=== PATIENT | female | born 1955 | race Caucasian/White ===

== ENCOUNTER → 2023-03-09 | Emergency (ER) | payer OTHER, MEDICARE ==
[2023-03-09 13:10] LABS: Absolute Lymphocytes (CBC) 1.5 K/uL (0.7-4.9); Lymphocytes % 26.4 % (15.3-44.8); MCV 94.2 fL (80-100); MPV 7.5 fL (7.6-11.3); Platelets 241 thou/uL (152-406); RBC Red Blood Cell Count 4.35 M/uL (3.86-4.86)
[2023-03-09 13:21] LABS: Albumin 3.9 g/dL (3.4-5.0); Bilirubin Total 0.9 mg/dL (0.2-1.0); Potassium 4.6 mEq/L (3.5-5.1); Protein, Total 7.5 g/dL (6.4-8.2)
--- NOTE | 2023-03-09 13:58 | RAD REPORT ---
EXAM DESCRIPTION: CT - Abdomen Pelvis W Contrast - 03/09/2023 1:11 pm CLINICAL HISTORY: ABD PAIN COMPARISON: No comparisons TECHNIQUE: Thin cut axial CT imaging of the abdomen and pelvis was performed following intravenous a dministration of 100 mL Isovue 300. Multiplanar reformats were generated and reviewed. All CT scans are performed using dose optimization technique as appropriate and may include automated exposure control or mA/KV adjustment according to patient size. FINDINGS: No suspicious findings in the lung bases. The liver, spleen, adrenal glands, and pancreas show no suspicious findings. Gallbladder and biliary tree are also without suspicious finding. Symmetric renal function is seen with no hydronephrosis or suspicious renal mass. No dilated bowel loops or bowel wall thickening. Appendix is unremarkable. No free air, free fluid or inflammatory stranding. No hernia, mass or bulky lymphadenopathy. The urinary bladder is without sig nificant finding. No suspicious bony findings. IMPRESSION: No acute intra-abdominal process.
--- NOTE | 2023-03-09 14:19 | ER ---
Nurse's Notes [facility] Name: Olamide Kurtz Age: 67 yrs Sex: Female : 1955 Arrival Date: 03/09/2023 Time: : Bed 11 Private MD: Jeffrey Davila V Diagnosis: Abdominal pain, unspecified Presentation: 03/09 11:49 Chief complaint: Patient states: Sent by Dr. Davila for abdominal pain, possible bowel ld1 blockage. Abdominal pain X 2-3 weeks. Coronavirus screen: At this time, the client does not indicate any symptoms associated with coronavirus-19. Ebola Screen: No symptoms or risks identified at this time. Initial Sepsis Screen: Does the patient meet any 2 criteria? No. Patient's initial sepsis screen is negative. Does the patient have a suspected source of infection? No. Patient's initial sepsis screen is negative. Risk Assessment: Do you want to hurt yourself or someone else? Patient reports no desire to harm self or others. Onset of symptoms was March 09, 2023. 11:49 Method Of Arrival: Ambulatory ld1 11:49 Acuity: JOHANNE 3 ld1 Triage Assessment: 11:50 General: Appears in no apparent distress. uncomfortable, Behavior is calm, cooperative, ld1 appropriate for age. Pain: Complains of pain in abdomen Pain does not radiate. Pain currently is 8 out of 10 on a pain scale. Quality of pain is described as throbbing, Pain began 3 weeks Is continuous. EENT: No signs and/or symptoms were reported regarding the EENT system. Neuro: Level of Consciousness is awake, alert, obeys commands, Oriented to person, place, time, situation. Cardiovascular: Capillary refill < 3 seconds Patient's skin is warm and dry. Respiratory: Airway is patent Respiratory effort is even, unlabored. GI: Abdomen is flat, non-distended, Reports lower abdominal pain, upper abdominal pain, diarrhea, nausea. : No signs and/or symptoms were reported regarding the genitourinary system. Derm: No signs and/or symptoms reported regarding the dermatologic system. Musculoskeletal: No signs and/or symptoms reported regarding the musculoskeletal system. Historical: - Allergies: 11:51 Codeine; ld1 - Home Meds: 11:51 None [Active]; ld1 - PMHx: 11:51 None; ld1 - PSHx: 11:51 Total abdominal hysterectomy; ld1 - Immunization history:: Adult Immunizations up to date. - Social history:: Smoking status: Patient denies any tobacco usage or history of. Patient/guardian denies using alcohol. - Family history:: not pertinent. Screenin:08 [facility] ED Fall Risk Assessment (Adult) History of falling in the last 3 months, kc6 including since admission No falls in past 3 months (0 pts) Confusion or Disorientation No (0 pts) Intoxicated or Sedated No (0 pts) Impaired Gait No (0 pts) Mobility Assist Device Used No (0 pt) Altered Elimination No (0 pt) Score/Fall Risk Level 0 - 2 = Low Risk. Abuse screen: Denies threats or abuse. Denies injuries from another. Nutritional screening: No deficits noted. Tuberculosis screening: No symptoms or risk factors identified. Assessment: 14:08 Reassessment: please see triage assessment. kc6 Vital Signs: 11:49 BP 159 / 105; Pulse 81; Resp 18; Temp 98.3(TE); Pulse Ox 99% on R/A; Pain 8/10; ld1 11:52 Weight 66.22 kg; Height 5 ft. 6 in. ; ld1 11:52 Pain 4/10; ld1 11:52 Body Mass Index 23.56 (66.22 kg, 167.64 cm) ld1 11:49 Pain Scale: Adult ld1 11:52 Pain Scale: Adult ld1 ED Course: 11:33 Patient arrived in ED. mr 11:33 Jeffrey Davila MD is Private Physician. mr 11:33 Veto Montemayor MD is Attending Physician. rt 11:50 Triage completed. ld1 11:50 Arm band placed on right wrist. ld1 13:12 CT Abd/Pelvis - IV Contrast Only In Process Unspecified. EDMS 14:00 Rosalinda Rodriguez, LILIBETH is Primary Nurse. kc6 14:08 Patient has correct armband on for positive identification. Bed in low position. Call kc6 light in reach. Side rails up X 1. Client placed on continuous cardiac and pulse oximetry monitoring. NIBP monitoring applied. 14:08 Patient maintains SpO2 saturation greater than 95% on room air. kc6 14:18 Joey Mckenzie MD is Referral Physician. rt 14:18 Referral Physician role handed off by Joey Mckenzie MD rt 14:18 Kevin Jett MD is Referral Physician. rt 14:56 Provided Education on: discharge. jl7 14:56 No provider procedures requiring assistance completed. IV discontinued, intact, jl7 bleeding controlled, No redness/swelling at site. Pressure dressing applied. Administered Medications: No medications were administered Medication: 14:56 VIS not applicable for this client. jl7 Outcome: 14:18 Discharge ordered by MD. rt 14:56 Discharged to home ambulatory, jl7 14:56 Condition: stable 14:56 Discharge instructions given to patient, Instructed on discharge instructions, follow up and referral plans. Demonstrated understanding of instructions, follow-up care, 14:57 Patient left the ED. jl7 Signatures: Dispatcher [employer] EDCT Nella Barnhart, Reg Reg mr HannaNenita, RN RN jl7 Lucero Portillo, LILIBETH RN ld1 Rosailnda Rodriguez, RN RN kc6 Veto Montemayor MD MD rt
--- NOTE | 2023-03-09 14:19 | EDPHYS ---
Physician Documentation [facility] Name: Olamide Kurtz Age: 67 yrs Sex: Female : 1955 Arrival Date: 03/09/2023 Time: : Bed 11 Private MD: Jeffrey Davila V ED Physician Veto Montemayor HPI: 03/09 12:23 This 67 yrs old Female presents to ER via Ambulatory with complaints of Abdominal Pain. rt 12:23 Patient presents to the ED with several weeks of abdominal pain, progressively rt worsening. It started on the right upper quadrant, went to her PCP a few days ago, had negative labs, ultrasounds. Now the pain is in the periumbilical region, somewhat worsening. She has nausea without vomiting. Also reports diarrhea. Denies other acute complaints, symptoms are moderate severity, no other aggravating elevating factors.. Historical: - Allergies: 11:51 Codeine; ld1 - Home Meds: 11:51 None [Active]; ld1 - PMHx: 11:51 None; ld1 - PSHx: 11:51 Total abdominal hysterectomy; ld1 - Immunization history:: Adult Immunizations up to date. - Social history:: Smoking status: Patient denies any tobacco usage or history of. Patient/guardian denies using alcohol. - Family history:: not pertinent. ROS: 18:45 Constitutional: Negative for fever, chills, and weight loss, Cardiovascular: Negative rt for chest pain, palpitations, and edema, Respiratory: Negative for shortness of breath, cough, wheezing, and pleuritic chest pain, MS/Extremity: Negative for injury and deformity, Skin: Negative for injury, rash, and discoloration, Neuro: Negative for headache, weakness, numbness, tingling, and seizure, Psych: Negative for depression, anxiety, suicide ideation, homicidal ideation, and hallucinations, 18:45 Abdomen/GI: Positive for abdominal pain, Negative for nausea and vomiting, Exam: 18:45 Constitutional: This is a well developed, well nourished patient who is awake, alert, rt and in no acute distress. Head/Face: Normocephalic, atraumatic. Chest/axilla: Normal chest wall appearance and motion. Nontender with no deformity. No lesions are appreciated. Cardiovascular: Regular rate and rhythm with a normal S1 and S2. No gallops, murmurs, or rubs. Normal PMI, no JVD. No pulse deficits. Respiratory: Lungs have equal breath sounds bilaterally, clear to auscultation and percussion. No rales, rhonchi or wheezes noted. No increased work of breathing, no retractions or nasal flaring. Skin: Warm, dry with normal turgor. Normal color with no rashes, no lesions, and no evidence of cellulitis. MS/ Extremity: Pulses equal, no cyanosis. Neurovascular intact. Full, normal range of motion. Neuro: Awake and alert, GCS 15, oriented to person, place, time, and situation. Cranial nerves II-XII grossly intact. Motor strength 5/5 in all extremities. Sensory grossly intact. Cerebellar exam normal. Normal gait. Psych: Awake, alert, with orientation to person, place and time. Behavior, mood, and affect are within normal limits. 18:45 Abdomen/GI: Mild tenderness diffusely without rebound, guarding, distention, Vital Signs: 11:49 BP 159 / 105; Pulse 81; Resp 18; Temp 98.3(TE); Pulse Ox 99% on R/A; Pain 8/10; ld1 11:52 Weight 66.22 kg; Height 5 ft. 6 in. ; ld1 11:52 Pain 4/10; ld1 11:52 Body Mass Index 23.56 (66.22 kg, 167.64 cm) ld1 11:49 Pain Scale: Adult ld1 11:52 Pain Scale: Adult ld1 MDM: 11:53 Patient medically screened. rt 18:45 Differential diagnosis: Generalized abdominal pain, appendicitis, bowel obstruction. rt Data reviewed: vital signs, nurses notes, lab test result(s), radiologic studies. Management of patient was discussed with the following: Primary Care Provider: Discussed with patient's primary care, request discharge, will follow-up as an outpatient. Independent interpretation of the following test(s) in the Emergency Department CT Scan: My interpretation is No bowel obstruction seen on my interpretation of CT scan images. Counseling: I had a detailed discussion with the patient and/or guardian regarding the historical points, exam findings, and any diagnostic results supporting the discharge/admit diagnosis, lab results, radiology results, the need for outpatient follow up, to return to the emergency department if symptoms worsen or persist or if there are any questions or concerns that arise at home. 03/09 11:54 Order name: CBC with Diff; Complete Time: 13:33 rt 03/09 11:54 Order name: CMP; Complete Time: 13:33 rt 03/09 11:54 Order name: Lipase; Complete Time: 13:33 rt 03/09 11:54 Order name: CT Abd/Pelvis - IV Contrast Only; Complete Time: 14:05 rt 03/09 11:54 Order name: IV Saline Lock; Complete Time: 12:47 rt 03/09 11:54 Order name: Labs collected and sent; Complete Time: 12:47 rt Administered Medications: No medications were administered Disposition Summary: 03/09/23 14:18 Discharge Ordered Notes: Location: Home rt Problem: new rt Symptoms: have improved rt Condition: Stable rt Diagnosis - Abdominal pain, unspecified rt Followup: rt - With: Joey Mckenzie MD - When: 5 - 6 days - Reason: Followup: rt - With: Kevin Jett MD - When: 2 - 3 days - Reason: Discharge Instructions: - Discharge Summary Sheet rt - Abdominal Pain, Adult rt Forms: - Medication Reconciliation Form rt - Thank You Letter rt - Antibiotic Education rt - Prescription Opioid Use rt - Patient Portal Instructions rt - Leadership Thank You Letter rt Signatures: Dispatcher [employer] Lucero Lee, RN RN ld1 Veto Montemayor MD MD rt
[2023-03-09 15:34] VITALS: BP 159/105; TEMP 98.3; O2SAT 99
== END ==
LOC: ER 11:31
DX: R10.11 Right upper quadrant pain (principal); Z88.5 Allergy status to narcotic agent
CPT/HCPCS: 85025; 36415; 83690; 80053; 74177; 99284; Q9967